=== PATIENT | female | born 1990 | race Caucasian/White ===

== ENCOUNTER 2017-09-01 08:25 | Inpatient (IN) | payer MEDICAID ==
[~2017-09-01 08:25] MED LIST: OXYTOCIN 30 UNITS/LR 500 ML BAG IV
[2017-09-01] MEDS ORDERED: MISOPROSTOL 200 MCG TAB PR (09:30)
[2017-09-01] MEDS ORDERED: METHYLERGONOVINE 0.2 MG INJ IM (09:30)
[2017-09-01] MEDS ORDERED: OXYTOCIN 30 UNITS/LR 500 ML IV (09:30)
[2017-09-01] MEDS ORDERED: CARBOPROST 250 MCG INJ IM (09:30)
[2017-09-01] MEDS ORDERED: CEFAZOLIN 2 GM/50 ML (PMX) 50 ML IV (09:30)
[2017-09-01 10:41] LABS: ADD MAN DIFF? NO
[2017-09-01 10:47] LABS: WHITE BLOOD COUNT 7.3 10^3/ul (4.8-10.8)
[2017-09-01 10:47] LABS: BASOPHILS % 0.3 % (0.0-2.0); EOSINOPHILS # 0.1 10^3/ul (0.0-0.5); HEMATOCRIT 37.9 % (37.0-47.0); HEMOGLOBIN 12.7 g/dl (12.0-16.0); LYMPHOCYTES # 1.6 10^3/ul (0.8-2.9); LYMPHOCYTES % 22.3 % (15.0-51.0); MEAN CORPUSCULAR HEMOGLOBIN 30.8 pg (29.0-33.0); MEAN CORPUSCULAR HGB CONC 33.5 g/dl (32.0-37.0); MONOCYTE # 0.4 10^3/ul (0.3-0.9); MONOCYTES % 5.9 % (0.0-11.0); NEUTROPHIL # 5.1 10^3/ul (1.6-7.5); NEUTROPHILS % 69.5 % (39.0-77.0); PLATELET COUNT 162 10^3/UL (140-415); RED BLOOD COUNT 4.12 10^6/ul (4.20-5.40); RED CELL DISTRIBUTION WIDTH 13.8 % (11.5-14.5)
[2017-09-01 11:08] LABS: INR 0.82; PROTIME 11.4 Sec (11.9-14.9); PT RATIO 0.9
[2017-09-01] MEDS: LACTATED RINGER'S 1,000 ML IV (11:19)
[2017-09-01] MEDS ORDERED: LACTATED RINGER'S 500 ML IV (11:19)
[2017-09-01 17:56] LABS: HEPATITIS B SURFACE ANTIGEN NEGATIVE (NEGATIVE)
[2017-09-01] MEDS ORDERED: morphine SULFATE/PF (10 MG/10 ML) INJ (18:42)
[2017-09-01] MEDS ORDERED: PHENYLephrine (100 MCG/ML) 5ML SYG ×2 (18:51→19:12)
[2017-09-01] MEDS ORDERED: FENTAnyl 50 MCG/ML VIAL ×2 (19:04→19:12)
[2017-09-01] MEDS ORDERED: ONDANSETRON 4 MG INJ IV (19:30)
[2017-09-01] MEDS ORDERED: HYDROmorphONE (0.2 MG/ML) 10ML SYG IV (19:30)
[2017-09-01] MEDS ORDERED: HYDROmorphONE 0.5 MG/0.5 ML SYG IV ×2 (19:30)
[2017-09-01] MEDS ORDERED: DIPHENHYDRAMINE 50 MG INJ IV ×2 (19:30)
[2017-09-01] MEDS ORDERED: NALOXONE (0.4 MG/ML) INJ IV (19:30)
[2017-09-01] MEDS ORDERED: KETOROLAC 30 MG INJ IV (19:30)
[2017-09-01] MEDS ORDERED: FENTAnyl 50 MCG/ML VIAL IV ×2 (19:30)
[2017-09-01] MEDS: OXYTOCIN 30 UNITS/LR 500 ML IV (19:49)
[2017-09-01] MEDS ORDERED: MAGNESIUM SULFATE 20 GM/500 ML 500 ML IV (19:59)
[2017-09-01] MEDS: ONDANSETRON 4 MG INJ IV (20:04)
[2017-09-01] MEDS: KETOROLAC 30 MG INJ IV (20:33)
[2017-09-01 22:26] LABS: RAPID PLASMA REAGIN NONREACTIVE (NR)
[2017-09-01] MEDS: HYDROmorphONE (0.2 MG/ML) 10ML SYG IV (23:29)
[2017-09-02] MEDS: OXYTOCIN 30 UNITS/LR 500 ML IV ×2 (00:12→00:28)
[2017-09-02] MEDS ORDERED: MISOPROSTOL 200 MCG TAB PR (00:30)
[2017-09-02] MEDS ORDERED: LANOLIN 7 GM TUBE TOP (00:30)
[2017-09-02] MEDS ORDERED: METHYLERGONOVINE 0.2 MG INJ IM (00:30)
[2017-09-02] MEDS ORDERED: CARBOPROST 250 MCG INJ IM (00:30)
[2017-09-02] MEDS ORDERED: OXYTOCIN 30 UNITS/LR 500 ML IV (00:30)
[2017-09-02] MEDS ORDERED: NACL 0.9% 3 ML SYG IV (00:30)
[2017-09-02] MEDS: LACTATED RINGER'S 1,000 ML IV ×3 (03:47→19:00)
[2017-09-02 10:56] LABS: ADD MAN DIFF? NO
[2017-09-02 11:04] LABS: WHITE BLOOD COUNT 9.6 10^3/ul (4.8-10.8)
[2017-09-02 11:04] LABS: BASOPHILS % 0.2 % (0.0-2.0); EOSINOPHILS % 0.2 % (0.0-7.0); HEMATOCRIT 26.5 % (37.0-47.0); HEMOGLOBIN 8.8 g/dl (12.0-16.0); LYMPHOCYTES # 1.2 10^3/ul (0.8-2.9); LYMPHOCYTES % 12.4 % (15.0-51.0); MEAN CORPUSCULAR HGB CONC 33.2 g/dl (32.0-37.0); MEAN CORPUSCULAR VOLUME 93.3 fl (82.0-101.0); MEAN PLATELET VOLUME 12.2 fl (7.4-10.4); MONOCYTE # 0.6 10^3/ul (0.3-0.9); NEUTROPHIL # 7.7 10^3/ul (1.6-7.5); NEUTROPHILS % 80.7 % (39.0-77.0); PLATELET COUNT 126 10^3/UL (140-415); RED BLOOD COUNT 2.84 10^6/ul (4.20-5.40); RED CELL DISTRIBUTION WIDTH 13.9 % (11.5-14.5)
[2017-09-02] MEDS: KETOROLAC 30 MG INJ IV ×2 (11:39→17:57)
[2017-09-02] MEDS: IBUPROFEN 800 MG TAB PO (21:28)
[2017-09-03] MEDS: LACTATED RINGER'S 1,000 ML IV (00:28)
[2017-09-03] MEDS: HYDROCODONE/APAP (5/325) TAB PO ×4 (04:27→21:05)
[2017-09-03] MEDS: IBUPROFEN 800 MG TAB PO ×3 (05:47→22:06)
[2017-09-03] MEDS: INFLUENZA VIRUS VACCINE 0.5 ML (DISPENSING) IM* (10:18)
[2017-09-04] MEDS: IBUPROFEN 800 MG TAB PO (05:30)
[2017-09-04] MEDS: HYDROCODONE/APAP (5/325) TAB PO (08:07)
[2017-09-04] MEDS: NA PHOSPHATE/BIPHOS 133 ML ENEMA PR (08:07)
[2017-09-04] MEDS: DIPHTH/TET/ACEL PERTUSS (ADULT) 0.5 ML VIAL IM* (08:09)
[2017-09-04] MEDS: MEASLES,MUMPS,RUBELLA VACCINE INJ SC* (09:23)
== END 2017-09-04 12:35 | disposition home or self-care (01) | DRG 766 ==
LOC: L-D 08:25 → PP1 09-02 00:13 → L-D 17:27
PROVIDERS: Obstetrics & Gynecology
PROC: 10D00Z1 Extraction of Products of Conception, Low, Open Approach (ICD-10-PCS; principal; 2017-09-01 15:30)
PROC: 0UL70ZZ Occlusion of Bilateral Fallopian Tubes, Open Approach (ICD-10-PCS; 2017-09-01 15:30)
PROC: 3E033VJ Introduction of Other Hormone into Peripheral Vein, Percutaneous Approach (ICD-10-PCS; 2017-09-01 15:30)
DX: O34.211 Maternal care for low transverse scar from previous cesarean delivery (principal); Z30.2 Encounter for sterilization; Z37.0 Single live birth; Z3A.38 38 weeks gestation of pregnancy
CPT/HCPCS: 85025; 85610; 85730; 86592; 86850; 86900; 86901; 87340; 88302; 90686; 90715; 99464